=== PATIENT | female | born 1960 | race Caucasian/White ===

== ENCOUNTER 2023-12-17 14:12 | Emergency (ER) | payer OTHER ==
[~2023-12-17] VITALS: Ht 157.5 cm; Wt 158.8 kg
[2023-12-17] MEDS ORDERED: 0.9 % SODIUM CHLORIDE 1,000 ML IV STA (15:44)
[2023-12-17 16:33] LABS: HEMATOCRIT 34.9 % (36.0-45.00); MEAN CELL VOLUME 82.5 fL (80.00-100.00); MEAN CORPUSCULAR HEMOGLOBIN 28.4 pg (27.00-32.0); MEAN CORPUSCULAR HGB CONC 34.5 g/dl (32.0-36.0); PLATELET COUNT 337 K/uL (150-450); RED BLOOD COUNT 4.23 M/uL (4.00-6.00); RED CELL DISTRIBUTION WIDTH 15.6 % (11.5-14.5)
[2023-12-17 16:57] LABS: CALCIUM 8.7 mg/dL (8.5-10.1); CREATININE SERUM 0.42 mg/dL (0.55-1.02); GFR 152.88; POTASSIUM 4.28 mEq/L (3.5-5.1)
[2023-12-17] MEDS ORDERED: DIPHENHYDRAMINE HCL 50 MG CAPSULE PO STA (17:43)
[2023-12-17] MEDS ORDERED: ONDANSETRON HCL 2 MG/ML VIAL IV ONE (18:15)
[2023-12-17] MEDS ORDERED: FAMOtidine 10 MG/ML (4ML VIAL) IV ONE (18:15)
[2023-12-17] MEDS ORDERED: 0.9 % SODIUM CHLORIDE 1,000 ML IV SCH (18:15)
[2023-12-17] MEDS ORDERED: METROnidazole 500 MG TABLET PO SCH (18:16)
[2023-12-17] MEDS ORDERED: ENALAPRILAT DIHYDRATE 1.25 MG/ML VIAL IV PRN (18:30)
[2023-12-17 21:21] LABS: URINE APPEARANCE Clear; URINE BILIRRUBIN Negative (NEGATIVE); URINE BLOOD Negative; URINE COLOR Yellow; URINE GLUCOSE Negative (NEGATIVE); URINE LEUKOCYTE Small; URINE NITRATE Negative; URINE PROTEIN Negative (NEGATIVE); URINE UROBILINOGEN 0.2 E.U./dl
[2023-12-17 21:26] LABS: URINE BACTERIA 807.5 uL (0.0-1933); URINE RBC 37.7 uL (0.0-20.8); URINE WBC 20.8 uL (0.0-23.2)
[2023-12-17] MEDS ORDERED: LORazepam 2 MG/ML VIAL IM PRN (23:45)
[2023-12-18] MEDS ORDERED: HALOPERIDOL LACTATE 5 MG/ML AMPUL IM STA (16:32)
[2023-12-18] MEDS ORDERED: DIPHENHYDRAMINE HCL 50 MG/ML VIAL 1ML IM STA (16:33)
[2023-12-18] MEDS ORDERED: DIPHENHYDRAMINE HCL 50 MG/ML VIAL 1ML ONE (16:38)
[2023-12-18] MEDS ORDERED: HALOPERIDOL LACTATE 5 MG/ML AMPUL ONE (16:38)
[2023-12-18] MEDS ORDERED: LORazepam 2 MG/ML VIAL ONE (16:40)
[2023-12-19] MEDS ORDERED: LORazepam 2 MG/ML VIAL ONE ×2 (01:48→15:58)
[2023-12-19] MEDS ORDERED: METROnidazole 500 MG TABLET PO ONE ×2 (09:00→16:59)
[2023-12-19 11:26] LABS: COCAINE NEGATIVE (NEGATIVE); METHADONE NEGATIVE (NEGATIVE); OPIATES NEGATIVE (NEGATIVE); THC ( Cannabinoids) NEGATIVE (NEGATIVE)
[2023-12-19] MEDS ORDERED: DIPHENHYDRAMINE HCL 50 MG/ML VIAL 1ML IM ONE (15:45)
[2023-12-19] MEDS ORDERED: HALOPERIDOL LACTATE 5 MG/ML AMPUL IM ONE (15:45)
[2023-12-19] MEDS ORDERED: DIPHENHYDRAMINE HCL 50 MG/ML VIAL 1ML ONE (15:49)
[2023-12-19] MEDS ORDERED: HALOPERIDOL LACTATE 5 MG/ML AMPUL ONE (15:49)
[2023-12-20] MEDS ORDERED: METROnidazole 500 MG TABLET PO ONE (02:51)
[2023-12-20] MEDS ORDERED: HALOPERIDOL LACTATE 5 MG/ML AMPUL IM ONE (19:15)
[2023-12-20] MEDS ORDERED: LORazepam 2 MG/ML VIAL IM ONE (19:15)
== END 2023-12-20 21:52 | disposition designated cancer center or children's hospital (05) ==
LOC: ER 14:12
PROVIDERS: Emergency Medicine; General Practice
DX: K52.89 Other specified noninfective gastroenteritis and colitis (principal); E03.8 Other specified hypothyroidism; F20.9 Schizophrenia, unspecified; Z20.822 Contact with and (suspected) exposure to COVID-19
CPT/HCPCS: 70450; 71045; 96372; 99285; J1630; J3490